=== PATIENT | female | born 1955 | race Caucasian/White ===

== ENCOUNTER → 2016-11-10 | Outpatient (CLI) | payer OTHER | LOC: RAD 09:42 | PROVIDERS: ATTEND Family Medicine | DX: M54.16 Radiculopathy, lumbar region (principal) | CPT/HCPCS: 72148 ==

== ENCOUNTER → 2016-11-11 | Outpatient (CLI) | payer OTHER | LOC: LAB 12:31 | PROVIDERS: ATTEND Family Medicine | DX: M79.605 Pain in left leg (principal) | CPT/HCPCS: 36415; 85379 ==

== ENCOUNTER 2016-11-13 13:33 | Emergency (ER) | payer OTHER ==
--- NOTE | 2016-11-13 13:43 | ER Document Report ---
Addendum entered and electronically signed by ANGIE OLIVERA NP 11/13/16 15:32 : Course - Re-evaluation Re-evalutation: 11/13/16 15:32 Patient states that she was only here for MRI that her primary doctor had ordered as an outpatient. Patient does not want to wait for results and wants to go have her MRI study. Patient declines to wait for results of her evaluation here. The patient has decided not to proceed with further recommended testing or treatment to determine the cause of her symptoms. The risk and alternatives to the recommendation were discussed the patient voiced understanding. The patient appears clinically to have the capacity to make this decision. The patient was instructed that they could return to the ER at any time to complete the testing or treatment. - Vital Signs Vital signs: Temp Pulse Resp BP Pulse Ox 97.8 F 74 18 123/81 100 11/13/16 13:42 11/13/16 13:42 11/13/16 13:42 11/13/16 13:42 11/13/16 13:42 - Laboratory Result Diagrams: 11/13/16 13:55 11/13/16 13:55 Laboratory results interpreted by me: 11/13/16 11/13/16 13:55 13:55 Seg Neutrophils % 41.6 L Lymphocytes % 47.5 H BUN 25 H AST 37 H ALT 54 H Addendum entered and electronically signed by ANGIE OLIVERA NP 11/13/16 13:47 : Course - Re-evaluation Re-evalutation: 11/13/16 13:46 Consulted with who agrees with plan for Doppler imaging. - Vital Signs Vital signs: Temp Pulse Resp BP Pulse Ox 97.8 F 74 18 123/81 100 11/13/16 13:42 11/13/16 13:42 11/13/16 13:42 11/13/16 13:42 11/13/16 13:42 Original Note: ED Medical Screen (RME) - General Stated Complaint: LEFT LEG PAIN Mode of Arrival: Wheelchair Information source: Patient Notes: Patient presents complaining of left lower extremity pain for the past 2 weeks. Patient states that prior to that she did do a lot of yard work. Patient denies any injury. Patient took hydrocodone at home without relief. hx: Hypertension, thyroid I have greeted and performed a rapid initial assessment of this patient. A comprehensive ED assessment and evaluation of the patient, analysis of test results and completion of the medical decision making process will be conducted by additional ED providers. TRAVEL OUTSIDE OF THE [place] IN LAST 30 DAYS: No - Related Data Allergies/Adverse Reactions: Unable to Assess Allergy (Verified 02/28/14 20:30) Past Medical History - Past Medical History Cardiac Medical History: Reports: Hx Hypertension Past Surgical History: Reports: Hx Cholecystectomy, Hx Hysterectomy - Immunizations Hx Diphtheria, Pertussis, Tetanus Vaccination: No Physical Exam - Cardiovascular Pulses: Normal: Dorsalis pedis - Extremities General lower extremity: Tender - Left lower extremity
[2016-11-13 13:44] VITALS: BP 123/81
[2016-11-13 14:41] LABS: ABSOLUTE EOSINOPHILS # (AUTO) 0.3 10^3/uL (0.0-0.6); ABSOLUTE MONOCYTES (AUTO) 0.4 10^3/uL (0.1-1.4); ABSOLUTE NEUT (AUTO) 2.6 10^3/uL (1.7-8.2); BASOPHILS % (AUTO) 0.6 % (0-2); HEMATOCRIT 43.1 % (36.0-47.0); HEMOGLOBIN 14.8 g/dL (12.0-15.5); HGB HCT DIFFERENCE 1.3; LYMPHOCYTES % (AUTO) 47.5 % (13-45); MEAN CORPUSCULAR HEMOGLOBIN 29.6 pg (27.0-33.4); MEAN CORPUSCULAR HGB CONC 34.4 g/dL (32.0-36.0); MEAN CORPUSCULAR VOLUME 86 fl (80-97); MONOCYTES % (AUTO) 6.3 % (3-13); RED CELL DISTRIBUTION WIDTH 12.9 % (11.5-14.0); SEGMENTED NEUTROPHILS % (AUTO) 41.6 % (42-78); WHITE BLOOD COUNT 6.3 10^3/uL (4.0-10.5)
[2016-11-13 15:09] LABS: ALANINE AMINOTRANSFERASE 54 U/L (9-52); ALBUMIN 4.5 g/dL (3.5-5.0); ALKALINE PHOSPHATASE 74 U/L (38-126); ANION GAP 13 (5-19); ASPARTATE AMINO TRANSFERASE 37 U/L (14-36); BILIRUBIN,TOTAL 0.6 mg/dL (0.2-1.3); BLOOD UREA NITROGEN 25 mg/dL (7-20); CARBON DIOXIDE 30 mmol/L (22-30); CHLORIDE 99 mmol/L (98-107); CREATINE KINASE 88 U/L (30-135); CREATININE RESULT 0.73 mg/dL (0.52-1.25); GLUCOSE 92 mg/dL (75-110); POTASSIUM 3.7 mmol/L (3.6-5.0); SODIUM 142.2 mmol/L (137-145)
== END 2016-11-13 15:15 | disposition left against medical advice (07) ==
LOC: ER 13:33
DX: M79.605 Pain in left leg (principal); Z53.29 Procedure and treatment not carried out because of patient's decision for other reasons; I10 Essential (primary) hypertension
CPT/HCPCS: 36415; 80053; 82550; 85025; 93971; 99281

== ENCOUNTER → 2017-02-08 | Outpatient (CLI) | payer OTHER ==
[2017-02-08 09:19] LABS: ABSOLUTE EOSINOPHILS # (AUTO) 0.3 10^3/uL (0.0-0.6); ABSOLUTE LYMPHOCYTES (AUTO) 2.6 10^3/uL (0.5-4.7); ABSOLUTE MONOCYTES (AUTO) 0.5 10^3/uL (0.1-1.4); ABSOLUTE NEUT (AUTO) 4.1 10^3/uL (1.7-8.2); BASOPHILS % (AUTO) 0.5 % (0-2); EOSINOPHILS % (AUTO) 4.1 % (0-6); HEMATOCRIT 39.4 % (36.0-47.0); HEMOGLOBIN 13.8 g/dL (12.0-15.5); LYMPHOCYTES % (AUTO) 33.9 % (13-45); MEAN CORPUSCULAR HEMOGLOBIN 29.7 pg (27.0-33.4); MEAN CORPUSCULAR VOLUME 85 fl (80-97); RED BLOOD COUNT 4.64 10^6/uL (3.72-5.28); RED CELL DISTRIBUTION WIDTH 13.2 % (11.5-14.0); SEGMENTED NEUTROPHILS % (AUTO) 54.5 % (42-78); WHITE BLOOD COUNT 7.6 10^3/uL (4.0-10.5)
[2017-02-08 09:46] LABS: ALANINE AMINOTRANSFERASE 60 U/L (9-52); ALBUMIN 4.6 g/dL (3.5-5.0); ALKALINE PHOSPHATASE 63 U/L (38-126); ANION GAP 15 (5-19); ASPARTATE AMINO TRANSFERASE 43 U/L (14-36); BILIRUBIN,DIRECT 0.5 mg/dL (0.0-0.4); BILIRUBIN,TOTAL 0.7 mg/dL (0.2-1.3); BLOOD UREA NITROGEN 19 mg/dL (7-20); CALCIUM 10.1 mg/dL (8.4-10.2); CARBON DIOXIDE 30 mmol/L (22-30); CHLORIDE 102 mmol/L (98-107); CHOLESTEROL 238.61 mg/dL (0-200); CREATININE RESULT 0.72 mg/dL (0.52-1.25); Direct HDL 56 mg/dL (>40); GLUCOSE 112 mg/dL (75-110); POTASSIUM 3.7 mmol/L (3.6-5.0); SODIUM 146.8 mmol/L (137-145); TOTAL PROTEIN 7.8 g/dL (6.3-8.2); TRIGLYCERIDES 153 mg/dL (<150)
[2017-02-08 09:57] LABS: DIRECT LDL 145 mg/dL (<100)
[2017-02-08 10:35] LABS: VLDL CHOLESTEROL 30.6 mg/dL (10-31)
== END ==
LOC: OD 08:23
PROVIDERS: ATTEND Family Medicine Geriatric Medicine
DX: M79.672 Pain in left foot (principal); M25.572 Pain in left ankle and joints of left foot; M79.605 Pain in left leg; I10 Essential (primary) hypertension; E78.5 Hyperlipidemia, unspecified; E03.9 Hypothyroidism, unspecified; E55.9 Vitamin D deficiency, unspecified; Z79.899 Other long term (current) drug therapy
CPT/HCPCS: 36415; 80053; 80061; 82306; 82607; 84443; 85025

== ENCOUNTER → 2018-08-22 | Outpatient (CLI) | payer OTHER ==
--- NOTE | 2018-08-22 14:51 | WOMENS IMAGING REPORT ---
EXAM DESCRIPTION: BILAT SCREENING MAMMO W/CAD COMPLETED DATE/TIME: 08/22/2018 2:36 pm REASON FOR STUDY: BILATERAL SCREENING MAMMO /Z12.31 Z12.31 ENCNTR SCREEN MAMMOGRAM FOR MALIGNANT NE OPLASM OF ALHAJI COMPARISON: 2014 TECHNIQUE: Standard craniocaudal and mediolateral oblique views of each breast recorded using [employer] acquisition. LIMITATIONS: None. FINDINGS: No masses, calcifications or architectural distortion. No areas of suspicion. Read with the assistance of CAD. [facility] - R2 Cenova Version 1.3 .[facility] Imaging - R2 Cenova Version 1.3 .[facility] - R2 Cenova Version 2.4 .[facility] [place] - R2 Cenova Version 2.4 .[facility] - R2 Verifying Machine Operator Version 9.2 IMPRESSION: NORMAL MAMMOGRAM. BIRADS 1. BREAST DENSITY: c. The breasts are heterogeneously dense, which may obscure small masses. BIRAD: 1 NEGATIVE RECOMMENDATION: ROUTINE SCREENING Please continue yearly bilateral screening mammography/tomosynthesis in August 2019 COMMENT: The patient has been notified of the results by letter per [place] requirements. Additional no tification policies are in place for contacting patient with suspicious or incomplete findings. Quality ID #[id number]: The [employer] recommends an annual screening mammogram for women aged 40 years or over. This facility utilizes a reminder system to ensure that all patients receive reminder letters, and/or direct phone calls for appointments. This includes reminders for routine scr eening mammograms, diagnostic mammograms, or other Breast Imaging Interventions when appropriate. Th is patient will be placed in the appropriate reminder system. The [employer] ([employer]) has developed recommendations for screening MRI of the breast s in certain patient populations, to be used in conjunction with mammography. Breast MRI surveillanc e may be appropriate for women with more than 20% lifetime risk of developing breast cancer as deter mined by genetic testing, significant family history of the disease, or history of mantle radiation f or Hodgkins Disease. ACR Practice Guidelines 2008. TECHNICAL DOCUMENTATION: FINDING NUMBER: (1) ASSESSMENT: (1) JOB ID: [id number] [employer]- All Rights Reserved Reading location - IP/workstation name: [facility]-RR2
== END ==
LOC: WI 14:17
PROVIDERS: ATTEND Family Medicine Geriatric Medicine
DX: Z12.31 Encounter for screening mammogram for malignant neoplasm of breast (principal)
CPT/HCPCS: 77067